=== PATIENT | male | born 1985 | race African-American/Black ===

== ENCOUNTER 2019-10-03 23:33 | Emergency (ER) | payer OTHER ==
[~2019-10-03] VITALS: Ht 180.3 cm; Wt 114.6 kg
[2019-10-03] MEDS ORDERED: LIDOCAINE-MPF 1%, 5ML ONE (23:46)
[2019-10-04] MEDS ORDERED: SODIUM CHLORIDE 0.9% 1,000ML IVBOLUS ONE
[2019-10-04] MEDS ORDERED: PROPOFOL 10 MG/ML, 20ML IVPush ONE
[2019-10-04] MEDS ORDERED: CLINDAMYCIN PMX 600MG/50ML 50 ML IVPB ONE
[2019-10-04] MEDS ORDERED: SODIUM CHLORIDE FLUSH 10ML SYR IVF ONE
[2019-10-04] MEDS ORDERED: ONDANSETRON 2MG/ML, 2ML IVPush ONE
[2019-10-04] MEDS ORDERED: MORPHINE SULFATE 4 MG/ML, 1ML IVPush PRN
[2019-10-04] MEDS ORDERED: LIDOCAINE 2%, 20ML SQ ONE
--- NOTE | 2019-10-04 | NUR ---
FIRST CONTACT WITH PT. AWAKE/ALERT, NAD NOTED. PT REPORTS CYST X THREE DAYS ON L UPPER THIGH/BUTTOCK. +SUBJECTIVE FEVER. PER ERP, PROCEDURAL SEDATION FOR I&D POST LABS/CT RESULTS. IV ESTABLISHED. BP/SPO2/ECG MONITORING IN PLACE. NSR ON MONITOR.
--- NOTE | 2019-10-04 00:20 | NUR ---
CONSENT SIGNED FOR PROCEDURAL SEDATION. ROOM READIED FOR PROCEDURE. AWAITING LAB/CT RESULTS.
[2019-10-04 00:25] LABS: BASOPHILS # (AUTO) 0.03 x10^3/uL (0-0.1); BASOPHILS % (AUTO) 0 % (0-1); EOSINOPHILS # (AUTO) 0.16 x10^3/uL (0-0.4); EOSINOPHILS % (AUTO) 2 % (1-7); LYMPHOCYTES # (AUTO) 1.31 x10^3/uL (1-3.4); LYMPHOCYTES % (AUTO) 12 % (22-44); MD NO; MEAN CORPUSCULAR HEMOGLOBIN 31.2 pg (27.5-34.5); MEAN CORPUSCULAR HGB CONC 33.3 g/dL (33.2-36.2); MEAN CORPUSCULAR VOLUME 93.8 fL (81-97); MEAN PLATELET VOLUME 8.1 fL (7.4-10.4); MONOCYTES # (AUTO) 0.72 x10^3/uL (0.2-0.8); MONOCYTES % (AUTO) 7 % (2-9); NEUTROPHILS # (AUTO) 8.57 x10^3/uL (1.8-6.8); NEUTROPHILS % (AUTO) 79 % (42-75); PLATELET COUNT 310 x10^3/uL (130-400); RED BLOOD COUNT 4.55 x10^6/uL (4.38-5.82); RED CELL DISTRIBUTION WIDTH 13.1 % (9.4-14.8)
[2019-10-04] MEDS ORDERED: LIDOCAINE-MPF 2% ,5ML ONE (00:25)
[2019-10-04] MEDS ORDERED: PROPOFOL 10 MG/ML, 20ML ONE ×2 (00:25→00:26)
[2019-10-04] MEDS ORDERED: ONDANSETRON 2MG/ML, 2ML ONE (00:30)
[2019-10-04] MEDS ORDERED: CLINDAMYCIN PMX 600MG/50ML 50 ML ONE (00:31)
[2019-10-04] MEDS ORDERED: MORPHINE SULFATE 4 MG/ML, 1ML ONE (00:31)
[2019-10-04 00:36] LABS: ALANINE AMINOTRANSFERASE 33 U/L (12-78); ALBUMIN 3.6 g/dL (3.4-5.0); ANION GAP 7 mmol/L (5-15); CALCIUM 8.6 mg/dL (8.5-10.1); CHLORIDE 103 mmol/L (98-107); CREATININE 1.13 mg/dL (0.7-1.3)
[2019-10-04 00:39] LABS: ALKALINE PHOSPHATASE 79 U/L (45-117); BILIRUBIN,TOTAL 0.4 mg/dL (0.2-1.0); TOTAL PROTEIN 8.4 g/dL (6.4-8.2)
--- NOTE | 2019-10-04 00:44 | NUR ---
PT MEDICATED PER EMAR FOR 10 PAIN. ABX INITIATED. BC X2 DRAWN PRIOR TO ADMIN. PT PLACED ON 2L O2 BY NC FOR SUPPORT
--- NOTE | 2019-10-04 02:19 | NUR ---
REPORT OF PT FROM JOHN REINA AND ASSUMING CARE OF PT AT THIS TIME. PT IS RESTING IN [facility]. AWAITING ERP FOR PROCEDURAL SEDATION AT THIS TIME.
--- NOTE | 2019-10-04 02:55 | NUR ---
I&D DONE WITH MODERATE SEDATION. PROCEDURE BEGAN AT 0238 AM AND ENDED AT 0242 AM. PT RECEIVED A TOTAL OF 300 MG PROPOFOL AND TOLERATED PROCEDURE WELL. PT HAS RETURNED TO BASELINE AT AT THIS TIME AND DENIES ANY NEEDS. PT HAS CALL LIGHT WITHIN REACH. CULTURES OBTAINED AND WALKED TO LAB. MODERATE SEDATION PACKET COMPLETED AND PLACED WITH CONSENT IN PT CHART.
--- NOTE | 2019-10-04 03:50 | NUR ---
PT D/C WITH D/C SUMMARY AND SCRIPTS. ALL QUESTIONS ANSWERED. PT VSS AND UPDATED IN EMR. PT SENT HOME WITH WOUND SUPPLIES AND VERBALIZES UNDERSTANDING OF [facility] AND F/U INSTRUCTIONS. PT IV D/C WITH TIP INTACT. PT SIGNED CONTROLLED SUBSTANCE SHEET WHICH WAS PLACED WITH PT CHART. PT DENIES ANY OTHER NEEDS PERTAINING TO THIS VISIT AND AMBULATES TO REGISTRATION DESK WITH STEADY GAIT FOR D/C HOME.
[2019-10-04 03:58] VITALS: BP 131/37
== END 2019-10-04 04:00 | disposition home or self-care (01) ==
LOC: ED 10-04 00:13
DX: K61.0 Anal abscess (principal); L03.317 Cellulitis of buttock; L03.116 Cellulitis of left lower limb; L02.416 Cutaneous abscess of left lower limb; F17.200 Nicotine dependence, unspecified, uncomplicated
CPT/HCPCS: 36415; 46050; 73701; 80053; 83605; 84145; 85025; 87040; 87070; 87077; 87186; 87205; 96365; 96375; 99152; 99285; J2270; J2405; J2704; J3490; J7030

== ENCOUNTER 2020-04-24 13:25 | Emergency (ER) | payer SELFPAY ==
[~2020-04-24] VITALS: Ht 180.3 cm; Wt 114.5 kg
[2020-04-24 13:27] VITALS: BP 142/91
--- NOTE | 2020-04-24 13:31 | NUR ---
PT DENIES WHEELCHAIR
[2020-04-24] MEDS ORDERED: KETOROLAC 30 MG/1 ML IM ONE (14:00)
[2020-04-24] MEDS ORDERED: DIAZEPAM 5 MG TABLET PO ONE (14:00)
[2020-04-24] MEDS ORDERED: DIAZEPAM 5 MG TABLET ONE (14:08)
[2020-04-24] MEDS ORDERED: KETOROLAC 30 MG/1 ML ONE (14:08)
--- NOTE | 2020-04-24 14:19 | NUR ---
meds per mar, given neck roll. hard spot on skin l buttock noted, provider made aware. no hx abscesses. as
[2020-04-24] MEDS ORDERED: LIDOCAINE-MPF 1%, 5ML INFIL ONE (14:30)
[2020-04-24] MEDS ORDERED: LIDOCAINE-MPF 1%, 5ML ONE (14:38)
== END 2020-04-24 15:11 | disposition home or self-care (01) ==
LOC: ED 14:15
DX: L05.01 Pilonidal cyst with abscess (principal); G89.29 Other chronic pain; M54.2 Cervicalgia; F17.200 Nicotine dependence, unspecified, uncomplicated
CPT/HCPCS: 10080; 96372; 99283; J1885

== ENCOUNTER 2020-05-15 16:11 | Emergency (ER) | payer MEDICAID ==
[~2020-05-15] VITALS: Ht 180.3 cm; Wt 117.5 kg
[2020-05-15 16:23] VITALS: BP 130/75
[2020-05-15] MEDS ORDERED: HYDROcodone/APAP 5/325 TABLET PO STA (16:52)
[2020-05-15] MEDS ORDERED: HYDROcodone/APAP 5/325 TABLET ONE (16:57)
== END 2020-05-15 18:49 | disposition home or self-care (01) ==
LOC: ED 17:23
DX: S83.91XA Sprain of unspecified site of right knee, initial encounter (principal); M25.461 Effusion, right knee; X58.XXXA Exposure to other specified factors, initial encounter; Y93.89 Activity, other specified; Y92.009 Unspecified place in unspecified non-institutional (private) residence as the place of occurrence of the external cause; Y99.8 Other external cause status
CPT/HCPCS: 29505; 99283